=== PATIENT | female | born 1985 | race Caucasian/White ===

== ENCOUNTER 2021-03-06 16:33 | Observation (INO) ==
[2021-03-06 18:08] LABS: Bacteria,Urine Few per hpf (None-Few); Basophils # 0.1 K/mcL (0.0-0.2); Basophils % 0.3 %; Bilirubin,Urine Negative (Negative); Blood,Urine Moderate (Negative); Clarity,Urine Clear (Clear); Color,Urine Light-Yellow (Yellow); Eosinophils # 0.2 K/mcL (0.0-0.6); Glucose,Urine (UA) Normal (Normal); Hematocrit 45.3 % (35.3-44.9); Hemoglobin 14.5 g/dL (11.5-15.4); Immature Granulocytes % 0.7 % (0-4); Ketones,Urine Negative (Negative); Leukocyte Esterase,Urine Negative (Negative); Lymphocytes # 3.6 K/mcL (0.6-4.6); Lymphocytes % 17.6 %; Mean Corpuscular Hemoglobin 26.7 pg (28.0-33.3); Mean Corpuscular Volume 83.4 fL (83.0-100.0); Mean Platelet Volume 11.6 fL (9.4-12.4); Monocytes # 1.2 K/mcL (0.0-1.3); Monocytes % 5.6 %; Mucus,Urine Moderate per lpf (None-Few); Neutrophils # 15.3 K/mcL (1.6-8.9); Nitrite,Urine Negative (Negative); Platelet Count 300 K/mcL (140-400); Protein,Urine Trace mg/dL (Neg-Trace); RBC,Urine 0-3 per hpf (0-3); Red Blood Count 5.43 M/mcL (3.82-4.97); Red Cell Distribution Width 15.6 % (11.5-14.5); Segmented Neutrophils % 74.8 %; Specific Gravity,Urine 1.009 (1.010-1.025); Squamous Epithelial Cell,Urine Few per hpf (None-Few); Urobilinogen,Urine Normal (Normal); White Blood Count 20.5 K/mcL (4.3-11.1)
[2021-03-06 18:17] LABS: Amphetamine Screen,Urine Negative ng/mL (Cutoff=1000); Barbiturate Screen,Urine Negative ng/mL (Cutoff=200); Benzodiazepines Screen,Urine Negative ng/mL (Cutoff=200); Cannabinoid Screen,Urine Positive ng/mL (Cutoff = 50); Cocaine Screen,Urine Negative ng/mL (Cutoff= 300); Opiate Screen,Urine Negative ng/mL (Cutoff=300); Phencyclidine Screen,Urine Negative ng/mL (Cutoff=25)
[2021-03-06 18:25] LABS: Acetaminophen < 10 mcg/mL (10-20); BUN/Creatinine Ratio 11 (6-26); Blood Urea Nitrogen 8 mg/dL (6-20); Calcium 10.4 mg/dL (8.6-10.3); Carbon Dioxide 28 mEq/L (23-29); Chloride 100 mEq/L (98-107); Chol/HDL Ratio 2.8 (0-4.9); Cholesterol 161 mg/dL (< 200); Ethanol < 10 mg/dL (Less than 10); Glucose 111 mg/dL (70-105); HDL Cholesterol 58 mg/dL (40-59); LDL Cholesterol,Calculated 75 mg/dL (< 100); Osmolality,Calculated 285 (280-300); Potassium 2.9 mEq/L (3.5-5.1); Salicylate < 2.5 mg/dL (15.0-30.0); Sodium 138 mEq/L (136-145); Triglycerides 140 mg/dL (< 150); eGFR For African Americans > 60 (> 60); eGFR For Non-African Americans > 60 (> 60)
[2021-03-06 18:51] LABS: Estimated Average Glucose 94 mg/dl; Hemoglobin A1C 4.9 %
[2021-03-06] MEDS ORDERED: Isovue-370 500 ML BOTTLE IVP ONE (19:51)
[2021-03-06] MEDS ORDERED: 0.9 % Sodium Chloride 1,000 ML IV ONE (19:52)
[2021-03-06 20:14] LABS: Basophils % 0.3 %; Eosinophils # 0.2 K/mcL (0.0-0.6); Eosinophils % 1.2 %; Hematocrit 39.5 % (35.3-44.9); Hemoglobin 12.6 g/dL (11.5-15.4); Immature Granulocytes % 0.5 % (0-4); Lymphocytes # 3.1 K/mcL (0.6-4.6); Lymphocytes % 21.3 %; Mean Corpuscular HGB Conc 31.9 g/dL (31.6-35.5); Mean Corpuscular Hemoglobin 26.3 pg (28.0-33.3); Mean Corpuscular Volume 82.3 fL (83.0-100.0); Mean Platelet Volume 11.4 fL (9.4-12.4); Monocytes # 0.8 K/mcL (0.0-1.3); Monocytes % 5.2 %; Neutrophils # 10.4 K/mcL (1.6-8.9); Platelet Count 209 K/mcL (140-400); Red Cell Distribution Width 15.4 % (11.5-14.5); Segmented Neutrophils % 71.5 %; White Blood Count 14.5 K/mcL (4.3-11.1)
[2021-03-06 20:58] LABS: Alanine Aminotransferase 8 Units/L (7-52); Albumin 4.6 g/dL (3.5-5.7); Albumin/Globulin Ratio 2.7 (1.1-2.2); Alkaline Phosphatase 73 Units/L (34-104); Aspartate Amino Transferase 11 Units/L (13-39); BUN/Creatinine Ratio 11 (6-26); Bilirubin,Total 0.5 mg/dL (0.3-1.0); Blood Urea Nitrogen 7 mg/dL (6-20); Calcium 9.5 mg/dL (8.6-10.3); Carbon Dioxide 27 mEq/L (23-29); Chloride 104 mEq/L (98-107); Globulin 1.7 g/dL (2.4-3.5); Glucose 101 mg/dL (70-105); Osmolality,Calculated 288 (280-300); Sodium 140 mEq/L (136-145); Total Protein 6.3 g/dL (6.4-8.9); eGFR For African Americans > 60 (> 60); eGFR For Non-African Americans > 60 (> 60)
[2021-03-06 22:04] LABS: Bilirubin,Direct 0.1 mg/dL (0.0-0.2); Bilirubin,Indirect 0.4 mg/dL (0.0-1.0); Magnesium 1.8 mg/dL (1.6-2.6)
[2021-03-06 23:37] LABS: Adenovirus Not Detected (Not Detect); Bordetella Pertussis Not Detected (Not Detect); Chlamydophila pneumoniae Not Detected (Not Detect); Coronavirus 229E Not Detected (Not Detect); Coronavirus HKU1 Not Detected (Not Detect); Coronavirus NL63 Not Detected (Not Detect); Coronavirus OC43 Not Detected (Not Detect); Human Metapneumovirus Not Detected (Not Detect); Human Rhinovirus/Enterovirus Not Detected (Not Detect); Influenza A Subtype 2009 H1 Not Detected (Not Detect); Influenza B Not Detected (Not Detect); Mycoplasma pneumoniae Not Detected (Not Detect); Parainfluenza Virus 1 Not Detected (Not Detect); Parainfluenza Virus 2 Not Detected (Not Detect); Parainfluenza Virus 3 Not Detected (Not Detect); Parainfluenza Virus 4 Not Detected (Not Detect); Respiratory Syncytial Virus Not Detected (Not Detect); SARS-CoV-2 Not Detected (Not Detect)
[2021-03-07] MEDS ORDERED: Melatonin 3 MG TABLET PO PRN (02:03)
[2021-03-07] MEDS ORDERED: Naloxone 0.4 MG/ML INJ IVP PRN (02:03)
[2021-03-07] MEDS ORDERED: Haloperidol Lactate 5 MG/ML VIAL IVP ONE (02:46)
[2021-03-07] MEDS: Nicotine 14 MG PATCH.TD24 TD SCH (03:34)
[2021-03-07 04:42] LABS: Basophils # 0.1 K/mcL (0.0-0.2); Basophils % 0.5 %; Eosinophils # 0.2 K/mcL (0.0-0.6); Eosinophils % 2.2 %; Hematocrit 39.7 % (35.3-44.9); Hemoglobin 12.7 g/dL (11.5-15.4); Immature Granulocytes % 0.4 % (0-4); Lymphocytes # 3.2 K/mcL (0.6-4.6); Lymphocytes % 30.8 %; Mean Corpuscular Hemoglobin 26.9 pg (28.0-33.3); Mean Corpuscular Volume 84.1 fL (83.0-100.0); Mean Platelet Volume 11.8 fL (9.4-12.4); Monocytes # 0.6 K/mcL (0.0-1.3); Neutrophils # 6.2 K/mcL (1.6-8.9); Platelet Count 205 K/mcL (140-400); Red Blood Count 4.72 M/mcL (3.82-4.97); Red Cell Distribution Width 15.3 % (11.5-14.5); Segmented Neutrophils % 60.1 %; White Blood Count 10.3 K/mcL (4.3-11.1)
[2021-03-07 05:00] LABS: BUN/Creatinine Ratio 11 (6-26); Blood Urea Nitrogen 8 mg/dL (6-20); Calcium 9.3 mg/dL (8.6-10.3); Carbon Dioxide 26 mEq/L (23-29); Chloride 109 mEq/L (98-107); Glucose 84 mg/dL (70-105); Magnesium 1.8 mg/dL (1.6-2.6); Osmolality,Calculated 284 (280-300); Phosphorous 2.8 mg/dL (2.7-4.5); Potassium 3.3 mEq/L (3.5-5.1); Sodium 138 mEq/L (136-145); eGFR For African Americans > 60 (> 60); eGFR For Non-African Americans > 60 (> 60)
[2021-03-07 08:51] LABS: Thyroid Stimulating Hormone 0.866 mcIU/mL (0.340-5.600)
[2021-03-07] MEDS ORDERED: TACROLIMUS 2 MG PO SCH (09:00)
[2021-03-07] MEDS: TACROLIMUS 1 MG PO SCH (20:01)
[2021-03-07] MEDS ORDERED: Tacrolimus [Prograf] 1 MG Capsule PO SCH (21:00)
[2021-03-08 02:42] LABS: Basophils # 0.1 K/mcL (0.0-0.2); Basophils % 0.7 %; Eosinophils # 0.4 K/mcL (0.0-0.6); Eosinophils % 4.9 %; Hematocrit 39.5 % (35.3-44.9); Hemoglobin 12.1 g/dL (11.5-15.4); Immature Granulocytes % 0.5 % (0-4); Lymphocytes # 3.5 K/mcL (0.6-4.6); Lymphocytes % 40.6 %; Mean Corpuscular HGB Conc 30.6 g/dL (31.6-35.5); Mean Corpuscular Hemoglobin 25.9 pg (28.0-33.3); Mean Corpuscular Volume 84.4 fL (83.0-100.0); Mean Platelet Volume 11.6 fL (9.4-12.4); Monocytes # 0.5 K/mcL (0.0-1.3); Monocytes % 5.5 %; Neutrophils # 4.1 K/mcL (1.6-8.9); Platelet Count 211 K/mcL (140-400); Red Blood Count 4.68 M/mcL (3.82-4.97); Red Cell Distribution Width 15.6 % (11.5-14.5); Segmented Neutrophils % 47.8 %; White Blood Count 8.5 K/mcL (4.3-11.1)
[2021-03-08 03:15] LABS: Alanine Aminotransferase 8 Units/L (7-52); Albumin 4.1 g/dL (3.5-5.7); Albumin/Globulin Ratio 2.4 (1.1-2.2); Alkaline Phosphatase 61 Units/L (34-104); Aspartate Amino Transferase 11 Units/L (13-39); BUN/Creatinine Ratio 28 (6-26); Bilirubin,Total 0.4 mg/dL (0.3-1.0); Blood Urea Nitrogen 20 mg/dL (6-20); Carbon Dioxide 24 mEq/L (23-29); Chloride 112 mEq/L (98-107); Globulin 1.7 g/dL (2.4-3.5); Glucose 74 mg/dL (70-105); Osmolality,Calculated 289 (280-300); Potassium 4.5 mEq/L (3.5-5.1); Sodium 139 mEq/L (136-145); Total Protein 5.8 g/dL (6.4-8.9); Triiodothyronine (T3) Free 2.62 pg/mL (2.50-3.90); eGFR For African Americans > 60 (> 60); eGFR For Non-African Americans > 60 (> 60)
[2021-03-08 07:10] VITALS: O2SAT 96
[2021-03-08] MEDS: Nicotine 14 MG PATCH.TD24 TD SCH (08:27)
[2021-03-08] MEDS: TACROLIMUS 1 MG PO SCH (08:29)
[2021-03-08] MEDS ORDERED: LEVOTHYROXINE SODIUM 75 MCG PO SCH (09:00)
[2021-03-08 13:27] VITALS: BP 111/78; PULSE 94; TEMP 98.5
== END 2021-03-08 14:22 ==
LOC: EMEROOARM 16:33 → 3BNU 16:33 → SUATTDRO 03-07 01:19 → 3BNU 03-07 02:00
PROVIDERS: ADMIT Internal Medicine; ATTEND Family Medicine

== ENCOUNTER 2021-03-08 14:48 | Observation (INO) ==
[2021-03-08] MEDS ORDERED: *HR* LORazepam 2 MG/ML VIAL IM PRN (15:07)
[2021-03-08] MEDS ORDERED: haloperidoL 5 MG TABLET PO PRN (15:07)
[2021-03-08] MEDS ORDERED: Haloperidol Lactate 5 MG/ML VIAL IM PRN (15:07)
[2021-03-08] MEDS ORDERED: Mag Hydrox/Al Hydrox/Simeth 30 ML UDC PO PRN (15:07)
[2021-03-08] MEDS ORDERED: hydrOXYzine pamoate 25 MG CAPSULE PO PRN (15:07)
[2021-03-08] MEDS ORDERED: MOM Conc 10 ML UD.LIQ PO PRN (15:07)
[2021-03-08] MEDS ORDERED: Acetaminophen 325 MG TABLET PO PRN (15:07)
[2021-03-08] MEDS ORDERED: *HR* LORazepam 1 MG TABLET PO PRN (15:07)
[2021-03-08] MEDS: TACROLIMUS 1 MG PO SCH (20:44)
[2021-03-09] MEDS ORDERED: Nicotine 21 MG PATCH.TD24 TD SCH (09:00)
[2021-03-09] MEDS: TACROLIMUS 1 MG PO SCH (09:38)
[2021-03-09 10:02] VITALS: BP 110/85; PULSE 121; TEMP 98.2; O2SAT 95
== END 2021-03-09 16:50 | disposition home or self-care (01) ==
LOC: 1ANU 14:48 → INTOOBSV 14:48
PROVIDERS: ADMIT Psychiatry & Neurology Psychiatry; ATTEND Psychiatry & Neurology Psychiatry

== ENCOUNTER 2021-07-17 15:59 | Inpatient (IN) ==
[2021-07-17 16:41] LABS: Bilirubin,Urine Negative (Negative); Blood,Urine Negative (Negative); Clarity,Urine Clear (Clear); Color,Urine Colorless (Yellow); Glucose,Urine (UA) Normal (Normal); Ketones,Urine Negative (Negative); Leukocyte Esterase,Urine Negative (Negative); Nitrite,Urine Negative (Negative); PH,Urine 6.5 pH Units (5.0-8.0); Protein,Urine Negative (Neg-Trace); Specific Gravity,Urine 1.007 (1.010-1.025); Urobilinogen,Urine Normal (Normal)
[2021-07-17 16:45] LABS: Basophils # 0.1 K/mcL (0.0-0.2); Basophils % 0.6 %; Eosinophils # 0.5 K/mcL (0.0-0.6); Eosinophils % 5.3 %; Hematocrit 39.4 % (35.3-44.9); Hemoglobin 13.2 g/dL (11.5-15.4); Immature Granulocytes % 0.4 % (0-4); Lymphocytes # 1.9 K/mcL (0.6-4.6); Lymphocytes % 21.5 %; Mean Corpuscular HGB Conc 33.5 g/dL (31.6-35.5); Mean Corpuscular Hemoglobin 28.9 pg (28.0-33.3); Mean Corpuscular Volume 86.2 fL (83.0-100.0); Monocytes # 0.5 K/mcL (0.0-1.3); Monocytes % 5.2 %; Platelet Count 155 K/mcL (140-400); Red Blood Count 4.57 M/mcL (3.82-4.97); Red Cell Distribution Width 17.1 % (11.5-14.5)
[2021-07-17 16:53] LABS: Amphetamine Screen,Urine Negative ng/mL (Cutoff=1000); Barbiturate Screen,Urine Negative ng/mL (Cutoff=200); Benzodiazepines Screen,Urine Negative ng/mL (Cutoff=200); Cannabinoid Screen,Urine Positive ng/mL (Cutoff = 50); Cocaine Screen,Urine Negative ng/mL (Cutoff= 300); Opiate Screen,Urine Negative ng/mL (Cutoff=300); Phencyclidine Screen,Urine Negative ng/mL (Cutoff=25)
[2021-07-17 17:02] LABS: Acetaminophen < 10 mcg/mL (10-20); BUN/Creatinine Ratio 19 (6-26); Blood Urea Nitrogen 15 mg/dL (6-20); Calcium 9.7 mg/dL (8.6-10.3); Carbon Dioxide 29 mEq/L (23-29); Chloride 103 mEq/L (98-107); Ethanol < 10 mg/dL (Less than 10); Glucose 93 mg/dL (70-105); Osmolality,Calculated 283 (280-300); Potassium 4.2 mEq/L (3.5-5.1); Salicylate < 2.5 mg/dL (15.0-30.0); Sodium 136 mEq/L (136-145); eGFR For African Americans > 60 (> 60); eGFR For Non-African Americans > 60 (> 60)
[2021-07-17] MEDS ORDERED: Acetaminophen 325 MG TABLET PO PRN (19:25)
[2021-07-17] MEDS ORDERED: *HR* LORazepam 2 MG/ML VIAL IM PRN (19:25)
[2021-07-17] MEDS ORDERED: Nicotine 2 MG GUM BC PRN (19:25)
[2021-07-17] MEDS ORDERED: Haloperidol Lactate 5 MG/ML VIAL IM PRN (19:25)
[2021-07-17] MEDS ORDERED: MOM Conc 10 ML UD.LIQ PO PRN (19:25)
[2021-07-17] MEDS ORDERED: traZODone 50 MG TABLET PO PRN (19:25)
[2021-07-17] MEDS ORDERED: QUEtiapine Fumarate 25 MG TABLET PO PRN (19:25)
[2021-07-17] MEDS ORDERED: haloperidoL 5 MG TABLET PO PRN (19:25)
[2021-07-17] MEDS ORDERED: *HR* LORazepam 1 MG TABLET PO PRN (19:25)
[2021-07-17 20:02] LABS: Influenza A PCR Negative (Negative); Influenza B PCR Negative (Negative); Resp. Syncytial Virus PCR Negative (Negative)
[2021-07-17 20:04] LABS: SARS-CoV-2 by PCR (In House) Negative (Negative)
[2021-07-17] MEDS: hydrOXYzine pamoate 25 MG CAPSULE PO PRN (23:38)
[2021-07-17] MEDS: FLUoxetine 20 MG CAPSULE PO SCH (23:38)
[2021-07-17] MEDS: TACROLIMUS 1 MG PO SCH (23:56)
[2021-07-18] MEDS: Vitamin B Complex/Vit C/Vit E 1 EACH TABLET PO SCH (09:43)
[2021-07-18] MEDS: FLUoxetine 20 MG CAPSULE PO SCH (09:43)
[2021-07-18] MEDS: TACROLIMUS 1 MG PO SCH ×2 (09:43→20:50)
[2021-07-18] MEDS: Nicotine 21 MG PATCH.TD24 TD PRN (09:46)
[2021-07-18 09:54] LABS: Albumin 4.2 g/dL (3.5-5.7); Albumin/Globulin Ratio 2.3 (1.1-2.2); Bilirubin,Direct 0.1 mg/dL (0.0-0.2); Bilirubin,Indirect 0.4 mg/dL (0.0-1.0); Bilirubin,Total 0.5 mg/dL (0.3-1.0); Globulin 1.8 g/dL (2.4-3.5)
[2021-07-18] MEDS: hydrOXYzine pamoate 25 MG CAPSULE PO PRN (20:50)
[2021-07-19] MEDS: Vitamin B Complex/Vit C/Vit E 1 EACH TABLET PO SCH (08:15)
[2021-07-19] MEDS: Nicotine 21 MG PATCH.TD24 TD PRN (08:15)
[2021-07-19] MEDS: TACROLIMUS 1 MG PO SCH ×2 (08:15→20:47)
[2021-07-19] MEDS: FLUoxetine 20 MG CAPSULE PO SCH (14:25)
[2021-07-19] MEDS: hydrOXYzine pamoate 25 MG CAPSULE PO PRN (20:47)
[2021-07-20] MEDS: TACROLIMUS 1 MG PO SCH (09:53)
[2021-07-20] MEDS: FLUoxetine 20 MG CAPSULE PO SCH (09:53)
[2021-07-20] MEDS: Vitamin B Complex/Vit C/Vit E 1 EACH TABLET PO SCH (09:53)
[2021-07-20] MEDS: Nicotine 21 MG PATCH.TD24 TD PRN (09:57)
[2021-07-20] MEDS ORDERED: Paliperidone Palmitate 234 MG/1.5 ML SYRINGE IM SCH (10:00)
[2021-07-20 10:26] VITALS: BP 96/80; PULSE 104; TEMP 96.5; O2SAT 97
== END 2021-07-20 16:20 | disposition home or self-care (01) | DRG 750 ==
LOC: EMEROOARM 15:59 → 1ANU 15:59
PROVIDERS: ADMIT Psychiatry & Neurology Psychiatry; ATTEND Psychiatry & Neurology Psychiatry